=== PATIENT | female | born 2000 | race Caucasian/White ===

== ENCOUNTER 2023-12-28 03:36 | Emergency (ER) | payer OTHER ==
[2023-12-28 03:40] VITALS: BP 113/74; PULSE 64; RESP 18; TEMP 98.3; BMI 27.4
[2023-12-28] MEDS ORDERED: ONDANSETRON *ODT* 4 MG TABLET ONE (04:20)
[2023-12-28] MEDS ORDERED: ACETAMINOPHEN 325 MG TABLET (FP) ONE (04:20)
[2023-12-28] MEDS: ONDANSETRON *ODT* 4 MG TABLET SL ONE (04:26)
[2023-12-28] MEDS: ACETAMINOPHEN 500 MG TABLET (FP) PO ONE (04:26)
[2023-12-28 05:09] LABS: EPI CELLS >36 /uL (0-25.1); HYALINE CASTS 30 /uL (0-3.1); PH,URINE 5.5 (5.0-8.0); URINE APPEARANCE TURBID; URINE BACTERIA 6134 /uL (0-1359); URINE BILIRUBIN NEGATIVE (NEGATIVE); URINE COLOR DK YELLOW; URINE GLUCOSE (UA) NEGATIVE (NEGATIVE); URINE KETONE TRACE (NEGATIVE); URINE LEUK ESTERASE 1+ (NEGATIVE); URINE NITRITE NEGATIVE (NEGATIVE); URINE PROTEIN 1+ (NEGATIVE); URINE WBC 411 /uL (0-25.8)
[2023-12-28] MEDS ORDERED: CEPHALEXIN MONOHYDRATE 500 MG CAPSULE (UD) ONE (05:18)
[2023-12-28] MEDS: CEPHALEXIN MONOHYDRATE 500 MG CAPSULE (UD) PO ONE (05:20)
[2023-12-28 08:42] LABS: URINE RBC 25 /uL (0-23.9)
== END 2023-12-28 05:37 | disposition home or self-care (01) ==
LOC: JER 03:36
DX: N39.0 Urinary tract infection, site not specified (principal); R42 Dizziness and giddiness; R11.0 Nausea; R30.0 Dysuria; R68.83 Chills (without fever); R10.30 Lower abdominal pain, unspecified
CPT/HCPCS: 81003; 87086; 99283-25; Q0162

== ENCOUNTER 2024-08-27 16:21 | Emergency (ER) | payer OTHER ==
[2024-08-27 16:28] VITALS: BP 114/79; PULSE 88; RESP 18; TEMP 99.7; BMI 28.9
[2024-08-27] MEDS ORDERED: ACETAMINOPHEN 500 MG TABLET (FP) ONE (16:51)
[2024-08-27] MEDS: ACETAMINOPHEN 500 MG TABLET (FP) PO ONE (16:53)
== END 2024-08-27 18:13 | disposition home or self-care (01) ==
LOC: JER 16:21 → JERFT 16:21
DX: U07.1 COVID-19 (principal); R50.9 Fever, unspecified; M79.10 Myalgia, unspecified site; R05.9 Cough, unspecified; R53.83 Other fatigue
CPT/HCPCS: 0241U-QW; 71046-TC-FY; 99284-25